=== PATIENT | female | born 1940 | race African-American/Black ===

== ENCOUNTER 2019-06-04 12:15 | Inpatient (IN) | payer OTHER, MEDICAID ==
[~2019-06-04] VITALS: Ht 167.6 cm; Wt 152.0 kg
[~2019-06-04 12:15] MED LIST: AMLO5TAB88 PO; CLOP75TA33 PO; DULO30CA2; GABA-531 PO; HYDR-519 PO; OMEP20CA14 PO; OXYB5TAB17 PO; TRIC54 PO; VALS160T28 PO
[2019-06-04] MEDS ORDERED: ONDANSETRON HCL 4MG/2ML INJ IV STA (16:46)
[2019-06-04] MEDS ORDERED: MORPHINE SULFATE 4 MG/ML CPJ (NOT FOR IM USE) IV STA (16:46)
[2019-06-04] MEDS ORDERED: VANCOMYCIN 1 G PREMIX 200 ML IV SCH (17:00)
[2019-06-04] MEDS ORDERED: PIPERACILLIN/TAZ 3.375G PREMIX 50 ML IV ONE (17:00)
[2019-06-04 17:14] LABS: BASOPHILS % 0.6 % (0.0-2.0); EOSINOPHILS % 1.4 % (0.0-5.0); HEMATOCRIT. 37.9 % (36.0-48.0); HEMOGLOBIN. 12.3 g/dL (12.0-16.0); LYMPHOCYTES % 28.4 % (20.0-50.0); MEAN CORPUSCULAR HEMOGLOBIN 30.1 pg (28.0-32.0); MEAN CORPUSCULAR VOLUME 92.7 fL (81.0-99.0); MEAN PLATELET VOLUME 8.5 fl (7.4-10.4); MONOCYTES % 7.9 % (2.0-8.0); NEUTROPHILS % 61.7 % (40.0-76.0); PLATELET 217 x1000/uL (130-400); RED BLOOD CELL COUNT 4.08 mill/uL (4.2-5.4); RED CELL DISTRIBUTION WIDTH 13.2 % (11.6-14.6)
[2019-06-04 17:15] LABS: CHLORIDE 104 mEq/L (98-107)
[2019-06-04 17:29] LABS: PARTIAL THROMBOPLASTIN TIME 29.9 sec (23.4-31.0); PROTHROMBIN TIME 10.8 sec (9.6-11.0)
[2019-06-04 18:45] LABS: CLARITY URINE CLOUDY (CLEAR); COLOR URINE YELLOW (YELLOW); KETONES URINE NEGATIVE (NEGATIVE); LEUKOCYTE ESTERASE URINE 1+ (NEGATIVE); NITRITE URINE NEGATIVE (NEGATIVE); OCCULT BLOOD URINE NEGATIVE (NEGATIVE); PH URINE 7.5 (4.5-8.0); PROTEIN URINE NEGATIVE (NEGATIVE); SPECIFIC GRAVITY URINE 1.013 (1.005-1.030); UROBILINOGEN URINE 0.2 E.U./dL (0.2-1.0)
[2019-06-04] MEDS ORDERED: ASPIRIN 81MG TABLET PO ONE (19:00)
[2019-06-04] MEDS ORDERED: FUROSEMIDE 40MG/4ML VIAL IV ONE (19:00)
[2019-06-04] MEDS ORDERED: NITROGLYCERIN OINT 1GM/INCH UDPKT TD ONE (19:00)
[2019-06-05] VITALS: BP 163/78
[2019-06-05 00:30] VITALS: BP 163/68
[2019-06-05] MEDS ORDERED: CEFTRIAXONE 2 G PREMIX 50 ML IV SCH (01:30)
[2019-06-05] MEDS ORDERED: DEXTROSE 50% WATER 50ML SYRINGE IV PRN (01:30)
[2019-06-05] MEDS ORDERED: CLONIDINE 0.1MG TABLET PO PRN (01:30)
[2019-06-05] MEDS: HYDROCODONE/ACETAMINOPHEN 10/325MG TABLET PO PRN ×3 (02:51→13:57)
[2019-06-05 04:00] VITALS: BP 118/58
[2019-06-05] MEDS: CEFTRIAXONE 2 G in DEXTROSE 5% WATER 50 ML IV SCH (04:37)
[2019-06-05] MEDS: GABAPENTIN 300MG CAPSULE PO SCH ×3 (06:16→21:28)
[2019-06-05] MEDS: OMEPRAZOLE 20MG CAPSULE EXTENDED RELEASE PO SCH (06:16)
[2019-06-05] MEDS: BLOOD SUGAR DIAGNOSTIC STRIP TEST SCH ×4 (06:20→20:42)
[2019-06-05] MEDS: INSULIN LISPRO 100 UNITS/ML SUBCUT SCH ×4 (07:33→20:42)
[2019-06-05 08:07] LABS: CHLORIDE 104 mEq/L (98-107)
[2019-06-05 08:10] LABS: BASOPHILS % 0.5 % (0.0-2.0); EOSINOPHILS % 3.2 % (0.0-5.0); HEMATOCRIT. 34.8 % (36.0-48.0); HEMOGLOBIN. 11.5 g/dL (12.0-16.0); LYMPHOCYTES % 29.5 % (20.0-50.0); MEAN CORPUSCULAR HEMOGLOBIN 30.4 pg (28.0-32.0); MEAN CORPUSCULAR VOLUME 92.4 fL (81.0-99.0); MEAN PLATELET VOLUME 8.7 fl (7.4-10.4); MONOCYTES % 10.4 % (2.0-8.0); NEUTROPHILS % 56.4 % (40.0-76.0); PLATELET 191 x1000/uL (130-400); RED BLOOD CELL COUNT 3.77 mill/uL (4.2-5.4); RED CELL DISTRIBUTION WIDTH 13.1 % (11.6-14.6)
[2019-06-05] MEDS: DULOXETINE HCL 30MG DR CAPSULE PO SCH (08:39)
[2019-06-05] MEDS: ENOXAPARIN 30MG/0.3ML SYR SUBCUT SCH ×2 (08:39→21:28)
[2019-06-05] MEDS: AMLODIPINE 5MG TABLET PO SCH (08:40)
[2019-06-05] MEDS ORDERED: TRAM50TA94 MT (15:03)
[2019-06-05 15:25] VITALS: BP 123/75
[2019-06-05 20:00] VITALS: BP 129/63
[2019-06-06] VITALS: BP 149/72
[2019-06-06] MEDS: HYDROCODONE/ACETAMINOPHEN 10/325MG TABLET PO PRN ×2 (00:46→13:20)
[2019-06-06 04:00] VITALS: BP 144/75
[2019-06-06] MEDS: BLOOD SUGAR DIAGNOSTIC STRIP TEST SCH ×2 (06:36→12:29)
[2019-06-06] MEDS: GABAPENTIN 300MG CAPSULE PO SCH ×2 (06:36→13:20)
[2019-06-06] MEDS: OMEPRAZOLE 20MG CAPSULE EXTENDED RELEASE PO SCH (06:36)
[2019-06-06 08:00] VITALS: BP 142/77
[2019-06-06] MEDS: CEFTRIAXONE 2 G in DEXTROSE 5% WATER 50 ML IV SCH (08:33)
[2019-06-06] MEDS: ENOXAPARIN 30MG/0.3ML SYR SUBCUT SCH (08:33)
[2019-06-06] MEDS: AMLODIPINE 5MG TABLET PO SCH (08:34)
[2019-06-06] MEDS: INSULIN LISPRO 100 UNITS/ML SUBCUT SCH ×2 (08:48→12:31)
[2019-06-06] MEDS: DULOXETINE HCL 30MG DR CAPSULE PO SCH (08:52)
[2019-06-06 12:00] VITALS: BP 150/77
[2019-06-06 13:20] VITALS: BP 144/75
== END 2019-06-06 14:30 | disposition home health service (06) | DRG 558 ==
LOC: ER 12:15 → EDBEDREQ 19:42 → EDBEDREQTM 19:51 → EDBEDREQ 19:51 → ENRESERV 23:20 → 6WST 06-05 00:21
PROVIDERS: ADMIT Internal Medicine; ATTEND Internal Medicine
DX: M25.752 Osteophyte, left hip (principal); L03.115 Cellulitis of right lower limb; L03.116 Cellulitis of left lower limb; M25.751 Osteophyte, right hip; E11.9 Type 2 diabetes mellitus without complications; G89.4 Chronic pain syndrome; Z96.659 Presence of unspecified artificial knee joint; M47.898 Other spondylosis, sacral and sacrococcygeal region; I50.9 Heart failure, unspecified; I11.0 Hypertensive heart disease with heart failure; Z79.02 Long term (current) use of antithrombotics/antiplatelets; Z79.899 Other long term (current) drug therapy
CPT/HCPCS: 36415; 71045; 72192; 73502; 80048; 80053; 81003; 82962; 83036; 83605; 83880; 84443; 84484; 85025; 87077; 87186; 93005; 93970; 97162; 99285; J0696; J1650; J1815; J2270; J2405; J2543; J3370; J7060

== ENCOUNTER 2024-06-19 21:03 | Inpatient (IN) | payer MEDICARE, MEDICAID ==
[~2024-06-19] VITALS: Ht 157.5 cm; Wt 112.1 kg
[~2024-06-19 21:03] MED LIST changes: +AMOX-424 MT; +ATOR20TA65 PO; +FURO40TA5 PO; +GABA-1180 PO; -GABA-531 PO; +IPRA3AMP9 NEB; +LORA10TA7 PO; +METF-414 PO; +OXYB-52 PO; -OXYB5TAB17 PO; +P20 PO; +POTA10CA93 PO; +PREG50CA PO
[2024-06-19 21:35] LABS: BASOPHILS % 0.7 % (0.0-2.0); EOSINOPHILS % 6.5 % (0.0-5.0); HEMATOCRIT. 36.6 % (36.0-48.0); HEMOGLOBIN. 11.9 g/dL (12.0-16.0); LYMPHOCYTES % 28.9 % (20.0-50.0); MEAN CORPUSCULAR HEMOGLOBIN 30.5 pg (28.0-32.0); MEAN CORPUSCULAR HGB CONC 32.6 g/dL (31.0-37.0); MEAN CORPUSCULAR VOLUME 93.5 fL (81.0-99.0); MEAN PLATELET VOLUME 8.2 fl (7.4-10.4); MONOCYTES % 11.1 % (2.0-8.0); NEUTROPHILS % 52.8 % (40.0-76.0); PLATELET 212 x1000/uL (130-400); RED BLOOD CELL COUNT 3.92 mill/uL (4.2-5.4); RED CELL DISTRIBUTION WIDTH 13.9 % (11.6-14.6); WHITE BLOOD COUNT 6.8 x1000/uL (4.5-11.0)
[2024-06-19 21:43] LABS: CHLORIDE 106 mEq/L (98-107); POTASSIUM 5.5 mEq/L (3.5-5.1); SODIUM 142 mEq/L (136-145)
[2024-06-19 21:44] LABS: CALCIUM 9.7 mg/dL (8.7-10.4); CARBON DIOXIDE 30 mEq/L (21-32)
[2024-06-19 21:49] LABS: GLUCOSE 165 mg/dL (70-105); UREA NITROGEN BLOOD 26 mg/dL (9-23)
[2024-06-19 21:50] LABS: TROPONIN I HIGH SENSITIVITY 13 ng/L (3.0-34)
[2024-06-19 23:48] LABS: TROPONIN I HIGH SENSITIVITY 12 ng/L (3.0-34)
[2024-06-20] MEDS: ACETAMINOPHEN 325MG TABLET PO ONE (00:10)
[2024-06-20 03:01] VITALS: BP 130/63; PULSE 74; RESP 18; TEMP 36.8
[2024-06-20] MEDS ORDERED: SPIR25TA6 PO (03:18)
[2024-06-20] MEDS ORDERED: METO-396 PO (03:18)
[2024-06-20 04:00] VITALS: BP 129/65; PULSE 76; RESP 18; TEMP 36.4; O2SAT 99
[2024-06-20] MEDS ORDERED: DOCUSATE SODIUM 100MG CAPSULE PO PRN (04:00)
[2024-06-20] MEDS ORDERED: ZOLPIDEM TARTRATE 5MG TABLET PO PRN (04:00)
[2024-06-20] MEDS ORDERED: MAGNESIUM/ALUMINUM HYDROXIDE/SIMETHICONE 30ML UDC PO PRN (04:00)
[2024-06-20] MEDS ORDERED: CLONIDINE 0.1MG TABLET PO PRN (04:00)
[2024-06-20] MEDS ORDERED: DEXTROSE 50% WATER 50ML SYRINGE IV PRN (04:45)
[2024-06-20] MEDS: BLOOD SUGAR DIAGNOSTIC STRIP TEST SCH (06:13)
[2024-06-20] MEDS: INSULIN LISPRO 100 UNITS/ML SUBCUT SCH (06:13)
[2024-06-20] MEDS: PANTOPRAZOLE 40MG DR TABLET PO SCH (06:28)
[2024-06-20 08:00] VITALS: BP 124/56; PULSE 75; RESP 18; TEMP 36.4; O2SAT 100
[2024-06-20] MEDS: IPRATROPIUM/ALBUTEROL 0.5-3(2.5)MG/3ML NEB NEB SCH (09:00)
[2024-06-20] MEDS: FUROSEMIDE 40MG/4ML VIAL IVP SCH (09:30)
[2024-06-20] MEDS: DULOXETINE HCL 30MG DR CAPSULE PO SCH (09:30)
[2024-06-20] MEDS: GABAPENTIN 300MG CAPSULE PO SCH (09:31)
[2024-06-20] MEDS: SPIRONOLACTONE 25MG TABLET PO SCH (09:31)
[2024-06-20] MEDS: METOPROLOL SUCCINATE 25MG ER TABLET PO SCH (09:31)
[2024-06-20] MEDS: AMLODIPINE 5MG TABLET PO SCH (09:31)
[2024-06-20] MEDS: CLOPIDOGREL 75MG TABLET PO SCH (09:31)
[2024-06-20] MEDS: LOSARTAN 50 MG TABLET PO SCH (09:31)
[2024-06-20] MEDS: ATORVASTATIN CALCIUM 20MG TABLET PO SCH (09:31)
[2024-06-20] MEDS: ENOXAPARIN 40MG/0.4ML SYR SUBCUT SCH (09:32)
[2024-06-20] MEDS: OXYBUTYNIN CHLORIDE 5MG TABLET PO SCH (09:33)
[2024-06-20 12:00] VITALS: BP 102/45; PULSE 59; RESP 18; TEMP 36.5; O2SAT 98
[2024-06-20 12:19] LABS: BASOPHILS % 0.5 % (0.0-2.0); EOSINOPHILS % 6.8 % (0.0-5.0); HEMATOCRIT. 34.5 % (36.0-48.0); HEMOGLOBIN. 11.2 g/dL (12.0-16.0); LYMPHOCYTES % 23.9 % (20.0-50.0); MEAN CORPUSCULAR HEMOGLOBIN 30.2 pg (28.0-32.0); MEAN CORPUSCULAR HGB CONC 32.6 g/dL (31.0-37.0); MEAN CORPUSCULAR VOLUME 92.7 fL (81.0-99.0); MEAN PLATELET VOLUME 8.2 fl (7.4-10.4); MONOCYTES % 9.6 % (2.0-8.0); NEUTROPHILS % 59.2 % (40.0-76.0); PLATELET 195 x1000/uL (130-400); RED BLOOD CELL COUNT 3.73 mill/uL (4.2-5.4); RED CELL DISTRIBUTION WIDTH 13.8 % (11.6-14.6); WHITE BLOOD COUNT 5.7 x1000/uL (4.5-11.0)
[2024-06-20 12:27] LABS: CHLORIDE 108 mEq/L (98-107); POTASSIUM 4.4 mEq/L (3.5-5.1); SODIUM 142 mEq/L (136-145)
[2024-06-20 12:28] LABS: CALCIUM 9.4 mg/dL (8.7-10.4); CARBON DIOXIDE 28 mEq/L (21-32)
[2024-06-20 12:33] LABS: CREATININE 0.8 mg/dL (0.6-1.0); GLUCOSE 144 mg/dL (70-105); UREA NITROGEN BLOOD 19 mg/dL (9-23)
[2024-06-20 12:34] LABS: TROPONIN I HIGH SENSITIVITY 11 ng/L (3.0-34)
[2024-06-20 12:37] LABS: THYROID STIMULATING HORMONE 2.22 uIU/mL (0.55-4.78)
[2024-06-20] MEDS: ACETAMINOPHEN 325MG TABLET PO PRN (14:05)
[2024-06-20 16:00] VITALS: BP 102/45; PULSE 59; RESP 18; TEMP 36.5; O2SAT 98
[2024-06-20 20:28] VITALS: PULSE 68; RESP 20; O2SAT 96
[2024-06-20 21:35] LABS: TROPONIN I HIGH SENSITIVITY 7 ng/L (3.0-34)
[2024-06-21] VITALS (7 sets, daily range): BP systolic 102–145; BP diastolic 51–64; PULSE 60–67; RESP 16–19; TEMP 36.1–36.4; O2SAT 95–100
[2024-06-21] MEDS ORDERED: ATOR20TA MT (10:42)
[2024-06-21] MEDS ORDERED: OXYB5TAB21 MT (10:42)
[2024-06-21] MEDS ORDERED: CLOP-31 MT (10:42)
[2024-06-21] MEDS ORDERED: FURO80TA87 MT (10:42)
[2024-06-21] MEDS ORDERED: LOSA50TA41 MT (10:42)
[2024-06-21] MEDS ORDERED: DULO60CA45 MT (10:42)
[2024-06-21] MEDS ORDERED: METO-396 MT (10:42)
[2024-06-21] MEDS ORDERED: SPIR25TA6 MT (10:42)
[2024-06-21] MEDS ORDERED: PROT40 MT (10:42)
[2024-06-21] MEDS: LOPERAMIDE HCL 2MG CAPSULE PO NR (19:33)
== END 2024-06-21 23:50 | disposition home or self-care (01) | DRG 291 ==
LOC: ER 21:03 → 8WST 06-20 00:25 → EDBEDREQ 06-20 00:29 → EDBEDREQTM 06-20 00:29
PROVIDERS: ADMIT Internal Medicine Pulmonary Disease; ATTEND Internal Medicine Pulmonary Disease
DX: I11.0 Hypertensive heart disease with heart failure (principal); I50.33 Acute on chronic diastolic (congestive) heart failure; I87.2 Venous insufficiency (chronic) (peripheral); J45.909 Unspecified asthma, uncomplicated; E11.9 Type 2 diabetes mellitus without complications; E78.00 Pure hypercholesterolemia, unspecified; E87.5 Hyperkalemia; Z86.73 Personal history of transient ischemic attack (TIA), and cerebral infarction without residual deficits
CPT/HCPCS: 36415; 71045; 80048; 82962; 83036; 84443; 84484; 85025; 93005; 94070; 94640; 99285; A4606; J1650; J1815; J1940

== ENCOUNTER 2024-07-10 10:36 | Emergency (ER) | payer MEDICARE, MEDICAID ==
[~2024-07-10] VITALS: Ht 167.6 cm; Wt 175.0 kg
[~2024-07-10 10:36] MED LIST changes: -AMOX-424 MT; +ATOR20TA MT; +CLOP-31 MT; +DULO60CA45 MT; +FURO80TA87 MT; +LOSA50TA41 MT; +METO-396 MT; +METO-396 PO; +OXYB5TAB21 MT; +PROT40 MT; +SPIR25TA6 MT; +SPIR25TA6 PO
[2024-07-10 10:37] VITALS: O2SAT 97
[2024-07-10 11:22] LABS: HEMATOCRIT. 35.8 % (36.0-48.0); HEMOGLOBIN. 11.4 g/dL (12.0-16.0); MEAN CORPUSCULAR HEMOGLOBIN 29.3 pg (28.0-32.0); MEAN CORPUSCULAR HGB CONC 31.9 g/dL (31.0-37.0); MEAN CORPUSCULAR VOLUME 91.9 fL (81.0-99.0); MEAN PLATELET VOLUME 7.9 fl (7.4-10.4); PLATELET 290 x1000/uL (130-400); RED CELL DISTRIBUTION WIDTH 14.3 % (11.6-14.6); WHITE BLOOD COUNT 9.9 x1000/uL (4.5-11.0)
[2024-07-10 11:25] LABS: CHLORIDE 106 mEq/L (98-107); POTASSIUM 4.2 mEq/L (3.5-5.1); SODIUM 140 mEq/L (136-145)
[2024-07-10 11:26] LABS: CALCIUM 9.7 mg/dL (8.7-10.4); CARBON DIOXIDE 28 mEq/L (21-32); DIFFERENTIAL COMMENT 1
[2024-07-10 11:31] LABS: CREATININE 0.8 mg/dL (0.6-1.0); GLUCOSE 58 mg/dL (70-105); UREA NITROGEN BLOOD 23 mg/dL (9-23)
[2024-07-10 11:32] LABS: TROPONIN I HIGH SENSITIVITY 9 ng/L (3.0-34)
[2024-07-10] MEDS: DEXTROSE 50% WATER 50ML SYRINGE IV ONE ×2 (12:51)
[2024-07-10 13:01] LABS: PLATELET ESTIMATE NORMAL
[2024-07-10] MEDS ORDERED: ACETAMINOPHEN 325MG TABLET PO PRN (14:00)
[2024-07-10] MEDS ORDERED: ONDANSETRON HCL 4MG/2ML INJ IV PRN (14:00)
[2024-07-10] MEDS ORDERED: LOPERAMIDE HCL 2MG CAPSULE PO PRN (14:30)
[2024-07-10] MEDS ORDERED: LORAZEPAM 0.5MG TABLET PO PRN (14:45)
[2024-07-10] MEDS: CLOPIDOGREL 75MG TABLET PO SCH (15:05)
[2024-07-10] MEDS: DULOXETINE HCL 60MG DR CAPSULE PO SCH (15:06)
[2024-07-10] MEDS: LOPERAMIDE HCL 2MG CAPSULE PO NR (16:17)
[2024-07-10 16:57] VITALS: BP 131/68; PULSE 81; RESP 18; TEMP 36.6; O2SAT 97
[2024-07-10] MEDS ORDERED: BLOOD SUGAR DIAGNOSTIC STRIP TEST SCH (17:00)
[2024-07-10] MEDS ORDERED: GABAPENTIN 300MG CAPSULE PO SCH (22:00)
[2024-07-11] MEDS ORDERED: PANTOPRAZOLE 40MG DR TABLET PO SCH (07:50)
== END 2024-07-10 17:27 | disposition short-term general hospital (02) ==
LOC: ER 10:36 → CANBEDREQ 13:07 → ER 17:27
DX: R19.7 Diarrhea, unspecified (principal); E11.649 Type 2 diabetes mellitus with hypoglycemia without coma; E78.00 Pure hypercholesterolemia, unspecified; I11.0 Hypertensive heart disease with heart failure; I50.9 Heart failure, unspecified; I25.2 Old myocardial infarction; J45.909 Unspecified asthma, uncomplicated; Z79.02 Long term (current) use of antithrombotics/antiplatelets; Z79.4 Long term (current) use of insulin; Z79.52 Long term (current) use of systemic steroids; Z79.84 Long term (current) use of oral hypoglycemic drugs; Z79.899 Other long term (current) drug therapy; Z86.73 Personal history of transient ischemic attack (TIA), and cerebral infarction without residual deficits
CPT/HCPCS: 36415; 71045; 80048; 82962; 83880; 84484; 85025; 93005; 96374; 99284; 99285

== ENCOUNTER 2024-12-01 16:09 | Emergency (ER) | payer MEDICAID, MEDICARE ==
[~2024-12-01] VITALS: Ht 170.2 cm; Wt 129.0 kg
[2024-12-01 16:21] VITALS: O2SAT 96
[2024-12-01 18:06] LABS: BASOPHILS % 0.4 % (0.0-2.0); EOSINOPHILS % 1.7 % (0.0-5.0); HEMATOCRIT. 34.9 % (36.0-48.0); HEMOGLOBIN. 11.4 g/dL (12.0-16.0); LYMPHOCYTES % 16.8 % (20.0-50.0); MEAN PLATELET VOLUME 8.4 fl (7.4-10.4); MONOCYTES % 9.2 % (2.0-8.0); NEUTROPHILS % 71.9 % (40.0-76.0); PLATELET 206 x1000/uL (130-400); RED BLOOD CELL COUNT 3.80 mill/uL (4.2-5.4); RED CELL DISTRIBUTION WIDTH 13.5 % (11.6-14.6)
[2024-12-01 18:23] LABS: INR 1.1
[2024-12-01 18:24] LABS: CREATININE 0.9 mg/dL (0.6-1.0); TROPONIN I HIGH SENSITIVITY 17 ng/L (3.0-34); UREA NITROGEN BLOOD 17 mg/dL (9-23)
[2024-12-01 18:25] LABS: ASPARTATE AMINOTRANSFERASE 30 IU/L (<34)
[2024-12-01 18:26] LABS: BILIRUBIN DIRECT 0.2 mg/dL (<=3.0); BILIRUBIN TOTAL 0.5 mg/dL (0.1-1.0); PROTEIN TOTAL 6.6 g/dL (6.0-8.3)
[2024-12-01] MEDS: ACETAMINOPHEN 500MG TABLET PO ONE (18:54)
[2024-12-01 19:38] VITALS: BP 159/66; PULSE 76; RESP 16; TEMP 36.8; O2SAT 95
== END 2024-12-01 22:10 | disposition short-term general hospital (02) ==
LOC: ER 16:09
DX: R26.9 Unspecified abnormalities of gait and mobility (principal); M25.512 Pain in left shoulder; M25.551 Pain in right hip; M62.82 Rhabdomyolysis; I11.0 Hypertensive heart disease with heart failure; I50.9 Heart failure, unspecified; E11.9 Type 2 diabetes mellitus without complications; Z79.02 Long term (current) use of antithrombotics/antiplatelets; Z79.52 Long term (current) use of systemic steroids; Z79.899 Other long term (current) drug therapy; Z86.73 Personal history of transient ischemic attack (TIA), and cerebral infarction without residual deficits; W19.XXXA Unspecified fall, initial encounter; Y93.89 Activity, other specified; Y92.89 Other specified places as the place of occurrence of the external cause; Y99.8 Other external cause status
CPT/HCPCS: 36415; 71045; 73030; 73502; 80048; 80076; 82550; 83735; 83880; 84484; 85025; 93005; 99285

== ENCOUNTER 2025-03-21 17:47 | Emergency (ER) | payer MEDICARE, MEDICAID ==
[~2025-03-21] VITALS: Ht 165.1 cm; Wt 100.0 kg
[2025-03-21 17:49] VITALS: O2SAT 96
[2025-03-21] MEDS ORDERED: VANCOMYCIN 1000MG/250ML 250 ML IV SCH (19:00)
[2025-03-21] MEDS: MORPHINE SULFATE 4 MG/ML INJ (FOR IV/IM USE) IV ONE (19:10)
[2025-03-21] MEDS: ONDANSETRON HCL 4MG/2ML INJ IV ONE (19:11)
[2025-03-21] MEDS: VANCOMYCIN 1G PREMIX 200 ML IV SCH (19:48)
[2025-03-21 19:49] LABS: BASOPHILS % 0.6 % (0.0-2.0); EOSINOPHILS % 3.0 % (0.0-5.0); HEMATOCRIT. 32.2 % (36.0-48.0); HEMOGLOBIN. 10.6 g/dL (12.0-16.0); LYMPHOCYTES % 27.6 % (20.0-50.0); MEAN PLATELET VOLUME 8.9 fl (7.4-10.4); MONOCYTES % 13.0 % (2.0-8.0); NEUTROPHILS % 55.8 % (40.0-76.0); PLATELET 199 x1000/uL (130-400); RED BLOOD CELL COUNT 3.38 mill/uL (4.2-5.4); RED CELL DISTRIBUTION WIDTH 13.7 % (11.6-14.6)
[2025-03-21 19:50] LABS: CREATININE 1.0 mg/dL (0.6-1.0)
[2025-03-21 19:51] LABS: PROTEIN TOTAL 7.4 g/dL (6.0-8.3); TROPONIN I HIGH SENSITIVITY 12 ng/L (3.0-34); UREA NITROGEN BLOOD 21 mg/dL (9-23)
[2025-03-21 19:52] LABS: ASPARTATE AMINOTRANSFERASE 15 IU/L (<34); BILIRUBIN DIRECT < 0.1 mg/dL (<=3.0)
[2025-03-21 19:53] LABS: BILIRUBIN TOTAL 0.2 mg/dL (0.1-1.0)
[2025-03-21 19:54] LABS: INR 1.0
[2025-03-21] MEDS: PIPERACILLIN/TAZO 3.375G/50ML 50 ML IV SCH (22:00)
[2025-03-21 22:45] VITALS: BP 124/67; PULSE 74; RESP 15; TEMP 36.7; O2SAT 96
== END 2025-03-21 23:30 | disposition short-term general hospital (02) ==
LOC: ER 17:47 → CMPBEDREQ 03-22 07:22
DX: M86.9 Osteomyelitis, unspecified (principal); K92.1 Melena; E11.69 Type 2 diabetes mellitus with other specified complication; I10 Essential (primary) hypertension; R06.02 Shortness of breath; Z79.02 Long term (current) use of antithrombotics/antiplatelets; Z79.4 Long term (current) use of insulin; Z79.52 Long term (current) use of systemic steroids; Z79.899 Other long term (current) drug therapy
CPT/HCPCS: 99285; 96365; 96375; 80076; 80048; 83880; 83735; 85025; 85610; 85730; 86850; 86900; 86901; 87040; 84484; 87077; 36415; 73620; J2405; J3373; J2270